=== PATIENT | male | born 1985 | race Caucasian/White ===

== ENCOUNTER 2020-02-09 13:19 | Emergency (ER) | payer OTHER, MEDICAID, SELFPAY ==
[2020-02-09 13:47] VITALS: BP 116/64; PULSE 70; RESP 18; TEMP 36.9; O2SAT 98; BMI 24.5
[2020-02-09 15:10] LABS: Adenovirus Not Detected (Not Detect); Bordetella pertussis Not Detected (Not Detect); Chlamydophila pneumoniae Not Detected (Not Detect); Coronavirus 229E Not Detected (Not Detect); Coronavirus HKU1 Not Detected (Not Detect); Coronavirus NL 63 Not Detected (Not Detect); Coronavirus OC43 Not Detected (Not Detect); Human Metapneumovirus Not Detected (Not Detect); Human Rhinovirus/Enterovirus Detected (Not Detect); Influenza A Not Detected (Not Detect); Influenza B Not Detected (Not Detect); Mycoplasma pneumoniae Not Detected (Not Detect); Parainfluenza Virus 1 Not Detected (Not Detect); Parainfluenza Virus 2 Not Detected (Not Detect); Parainfluenza Virus 3 Not Detected (Not Detect); Parainfluenza Virus 4 Not Detected (Not Detect); Respiratory Syncytial Virus Not Detected (Not Detect)
[2020-02-09 15:13] LABS: COVID19 -Nasal RAPID Negative (Negative)
--- NOTE | 2020-02-09 16:27 | ED_ITS ---
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 He says that 2 days ago he woke up with an irritated throat, cough has been sneezing, has experienced a reduction in his sense of taste and smell. He also endorses some body aches and low back pain, as well as several loose stools. He says he has had 4 watery stools over the past 2 days. He has been eating and drinking normally although he has a reduced appetite. He reports an occasional feeling of hard to get a deep breath when he goes uphill in the last couple of days this happened a few times. He has no known sick contacts other than his sister who also works construction and got sick around the same time as him, although notes that his child is in daycare, but has not been sick. He denies any fever, chills, abdominal pain, chest pain, or any other symptoms. MD Complaint: cough, sore throat and other (loose stol, loss of taste) Onset (ago): day(s) (2) Duration: constant Severity: mild Relieving factors: nothing Exacerbating factors: nothing Description of mucous: clear Able to tolerate fluids by mouth: Yes Context: sick contacts (sister) Associated symptoms: rhinorrhea, sore throat (irritated) and cough Treatments prior to arrival: none Related Data Allergies Allergy/AdvReac Type Severity Reaction Status Date / Time INGREDIENT: NKDA - NO KNOWN Allergy Unknown Uncoded 02/09/20 13:51 DRUG ALLERGIES Review of Systems <Cindy Osorio PA-C - Last Filed: 02/09/20 22:04> Review of Systems Narrative: GENERAL: Denies chills, fatigue, malaise, fever, sweats. HEENT: Denies sinus pain, ear pain, positive for irritated sore throat, positive for rhinorrhea, negative for difficulty swallowing, dizziness. RESPIRATORY: Denies dyspnea, positive for cough, negative for wheezing, hemoptysis, sputum. CARDIOVASCULAR: Denies chest pain, palpitations, orthopnea, edema, GASTROINTESTINAL: Denies nausea, vomiting, abdominal pain, diarrhea, constipation, melena. : Denies dysuria, frequency, incontinence, hematuria, urinary retention. MUSCULOSKELETAL: denies weakness, joint pain, or bony pain SKIN: Denies rash, skin lesions, or other NEUROLOGIC: Positive for reduced sense of taste, Denies weakness, headache, numbness, change in speech, confusion, seizures, incoordination. PSYCHIATRIC: No concerning psychosocial issues. 12 point review of systems is negative except for those stated above Patient History <Cindy Osorio PA-C - Last Filed: 02/09/20 22:04> Social History Smoking Status: Current every day smoker Smoking Status: Current every day smoker alcohol intake frequency: 0-2 drinks per day Substance Use Type: does not use Exam <Cindy Osorio PA-C - Last Filed: 02/09/20 22:04> Narrative Exam Narrative: GENERAL: 34 year old patient appears stated age. Well-nourished, well-developed patient, in mild distress. HEAD: Atraumatic. Normocephalic. EYES: Pupils equal round and reactive. Extraocular motions intact. No scleral icterus. No injection or drainage. ENT: Nose without bleeding, purulent drainage. Throat with mild erythema of the posterior oropharynx,/tonsillar pillar, no tonsillar hypertrophy or exudate. Airway patent. NECK: Trachea midline. Non tender CARDIOVASCULAR: Regular rate and rhythm without murmurs, gallops, or rubs. RESPIRATORY: Clear to auscultation. Breath sounds equal bilaterally. No wheezes, rales, or rhonchi. GASTROINTESTINAL: Abdomen soft, non-tender, nondistended. EXTREMITIES: No edema or joint tenderness. BACK: Nontender without deformity or crepitance. No flank tenderness. NEURO: AOx3. SKIN: No rash or erythema of visible areas Initial Vital Signs Initial Vital Signs: Vital Signs Temperature 98.4 F 02/09/20 13:47 Pulse Rate 70 02/09/20 13:47 Respiratory Rate 18 02/09/20 13:47 Blood Pressure 116/64 02/09/20 13:47 Pulse Oximetry 98 02/09/20 13:47 <Beata Chatman MD - Last Filed: 02/10/20 06:55> Initial Vital Signs Initial Vital Signs: Vital Signs Temperature 98.4 F 02/09/20 13:47 Pulse Rate 70 02/09/20 13:47 Respiratory Rate 18 02/09/20 13:47 Blood Pressure 116/64 02/09/20 13:47 Pulse Oximetry 98 02/09/20 13:47 Course <Cindy Osorio PA-C - Last Filed: 02/09/20 22:04> Course Course Narrative: Call the lab to ask if we need to do a 2nd swab to ensure that he gets tested for coronavirus novel 2019 vs use the previous swab, they stated that 2019 coronavirus was included in the virus panel and he tested negative for this they were just loading and into the chart at the time of our conversation 1651. Orders Ordered: ED Orders 02/09/20 13:05 Respiratory Panel (Film Array) Stat Vital Signs Vital signs: Vital Signs - 8 hr 02/09/20 17:07 Pulse Rate 71 Respiratory Rate 18 Blood Pressure 124/67 Pulse Oximetry 99 <Beata Chatman MD - Last Filed: 02/10/20 06:55> Orders Ordered: ED Orders 02/09/20 13:05 Respiratory Panel (Film Array) Stat Vital Signs Vital signs: Vital Signs - 8 hr 02/09/20 17:07 Pulse Rate 71 Respiratory Rate 18 Blood Pressure 124/67 Pulse Oximetry 99 MDM - URI/Sore Throat <Cindy Osorio PA-C - Last Filed: 02/09/20 22:04> Differential Diagnosis Differential diagnosis: Likely upper respiratory infection, sinusitis, viral infection, influenza, pharyngitis and other (COVID, Common cold) Medical Records Attestation: I reviewed the patient's medical records. Lab Data Attestation: I reviewed the patient's lab results. Lab results narrative: +Rhino COVID negative Labs: Lab Results 02/09/20 02/09/20 02/09/20 Range/Units 13:05 13:52 13:52 Chlamy pneumoniae PCR Not detected Cancelled (Not Detect) Adenovirus (PCR) Not detected Cancelled (Not Detect) B.parapertussis DNA PCR Not detected Cancelled Cancelled (Not Detect) Coronavirus OC43 (PCR) Not detected Cancelled (Not Detect) Coronavirus HKU1 (PCR) Not detected Cancelled (Not Detect) Coronavirus 229E (PCR) Not detected Cancelled (Not Detect) COVID-19 PCR Negative (Negative) Coronavirus NL63 (PCR) Not detected Cancelled (Not Detect) Human Metapneumovir PCR Not detected Cancelled (Not Detect) Influenza Type A (PCR) Not detected Cancelled (Not Detect) Influenza Type B (PCR) Not detected Cancelled (Not Detect) M. pneumoniae (PCR) Not detected Cancelled (Not Detect) Parainfluenza 1 (PCR) Not detected Cancelled (Not Detect) Parainfluenza 2 (PCR) Not detected Cancelled (Not Detect) Parainfluenza 3 (PCR) Not detected Cancelled (Not Detect) Parainfluenza 4 (PCR) Not detected Cancelled (Not Detect) RSV (PCR) Not detected Cancelled (Not Detect) Entero/Rhino (PCR) Detected H Cancelled (Not Detect) SARS-CoV-2 (PCR) Cancelled MDM Narrative Medical decision making narrative: Well-appearing previously healthy 34-year-old presents with symptoms of an upper respiratory infection. Concern for possible COVID. Respiratory virus panel is negative for COVID, he does have a positive rhino virus. Based on exam I do not feel any further labs or imaging are warranted today. Patient is discharged with instructions to follow-up with PCP. All questions answered, emergency return precautions provided. <Beata Chatman MD - Last Filed: 02/10/20 06:55> Lab Data Labs: Lab Results 02/09/20 02/09/20 02/09/20 Range/Units 13:05 13:52 13:52 Chlamy pneumoniae PCR Not detected Cancelled (Not Detect) Adenovirus (PCR) Not detected Cancelled (Not Detect) B.parapertussis DNA PCR Not detected Cancelled Cancelled (Not Detect) Coronavirus OC43 (PCR) Not detected Cancelled (Not Detect) Coronavirus HKU1 (PCR) Not detected Cancelled (Not Detect) Coronavirus 229E (PCR) Not detected Cancelled (Not Detect) COVID-19 PCR Negative (Negative) Coronavirus NL63 (PCR) Not detected Cancelled (Not Detect) Human Metapneumovir PCR Not detected Cancelled (Not Detect) Influenza Type A (PCR) Not detected Cancelled (Not Detect) Influenza Type B (PCR) Not detected Cancelled (Not Detect) M. pneumoniae (PCR) Not detected Cancelled (Not Detect) Parainfluenza 1 (PCR) Not detected Cancelled (Not Detect) Parainfluenza 2 (PCR) Not detected Cancelled (Not Detect) Parainfluenza 3 (PCR) Not detected Cancelled (Not Detect) Parainfluenza 4 (PCR) Not detected Cancelled (Not Detect) RSV (PCR) Not detected Cancelled (Not Detect) Entero/Rhino (PCR) Detected H Cancelled (Not Detect) SARS-CoV-2 (PCR) Cancelled Discharge Plan Departure Patient Disposition: Home Clinical Impression: Rhinovirus infection, Cough Upper respiratory infection Qualifiers: URI type: unspecified viral URI Qualified Code(s): J06.9 - Acute upper respiratory infection, unspecified Discharge Date/Time: 02/09/20 17:08 Instructions: DI for Common Cold Activity Restrictions/Additional Instructions: Thank you for allowing us to be part of your care in the emergency department today. Your respiratory virus panel did include COVID-19 test today, and this came back negative, however you do have a positive rhino virus test which is 1 type of common cold. I recommend you treat it as such, drink plenty of fluids and rest, do stay away from others to avoid them getting sick, if you have any new or concerning symptoms do not hesitate to seek medical care. You should be okay to spend time with immediate family however do note that you are sick and you could still past your cold on to other family members. I have included information for [facility] if you do not have a primary care provider you can call them to work on setting when up. There is no evidence of an emergent or life threatening illness at this time, but follow up with your doctor in 1-2 days is recommended nonetheless to continue to rule out serious underlying causes of your symptoms. Please call the office for an appointment. Please return to the Emergency Department for any worsening or persistent symptoms. Please take medications as directed. Referrals: [facility] [Outside] <Beata Chatman MD - Last Filed: 02/10/20 06:55> Cosign [facility] Attestation: I was immediately available in the department for consultation throughout this patient's visit. I agree with documentation as above. Beata Chatman MD
--- NOTE | 2020-02-09 16:36 | PC.NURSE ---
md at bedside for re eval and update on poc
[2020-02-09 17:07] VITALS: BP 124/67; PULSE 71; RESP 18; O2SAT 99
== END 2020-02-09 17:08 | disposition home or self-care (01) ==
PROVIDERS: Emergency Medicine; Emergency Provider Student in an Organized Health Care Education/Training Program; Family Provider Family Medicine
DX: J02.9 Acute pharyngitis, unspecified (principal); B34.8 Other viral infections of unspecified site; R05 Cough
CPT/HCPCS: 87633; 87635; 99281; 99282

== ENCOUNTER 2021-05-25 13:57 | Emergency (ER) | payer OTHER, MEDICAID, SELFPAY ==
[2021-05-25 14:02] VITALS: BP 132/73; PULSE 83; RESP 16; TEMP 36.7; O2SAT 98
--- NOTE | 2021-05-25 14:07 | DI.RAD.S_ITS ---
PROCEDURE: XR SHOULDER RT MIN 2V INDICATIONS: pain, lifting injury TECHNIQUE: 3 views of the shoulder were acquired. COMPARISON: None. FINDINGS: Bones: No fractures or dislocations. No suspicious bony lesions. Visualized ribs appear intact. Soft tissues: No suspicious soft tissue calcifications. IMPRESSION: No acute osseous abnormality. Dictated by: Charles Krishnamurthy M.D. on 05/25/2021 at 14:35 Approved by: Charles Krishnamurthy M.D. on 05/25/2021 at 14:35
--- NOTE | 2021-05-25 14:45 | ED.UPPEXIN ---
HPI - Extremity Injury (Upper) <KIN Bonilla - Last Filed: 05/25/21 15:58> General Chief Complaint: Extremity Injury, Upper Stated Complaint: Right Shoulder Injury Time Seen by Provider: 05/25/21 14:45 Source: patient Mode of arrival: Ambulatory History of Present Illness HPI narrative: 35-year-old male presents to emergency department with right shoulder pain which started yesterday when his in something above his head behind him. He denies any pop, or feeling of instability or dislocation, he reports that his right shoulder has been painful ever since. He is right-handed, he denies any weakness, numbness or tingling, or sensation changes. He reports that his pain is worse with abduction, and any extension movement. Related Data Previous Rx's Medication Instructions Recorded mirtazapine 15 mg tablet 7.5 mg PO BEDTIME #45 tab 11/21/20 paroxetine HCl 20 mg tablet (Paxil) 20 mg PO DAILY #90 tab 05/22/21 meloxicam 7.5 mg tablet 7.5 mg PO DAILY PRN #14 tab 05/25/21 Allergies Allergy/AdvReac Type Severity Reaction Status Date / Time No Known Drug Allergies Allergy Verified 05/25/21 14:29 Review of Systems <KIN Bonilla - Last Filed: 05/25/21 15:58> Review of Systems Narrative: General: denies fever, chills Head/Neck: denies headache, neck pain Eyes: denies visual changes, eye pain Cardio: denies chest pain, palpitations Respiratory: denies shortness of breath, cough GI: denies abdominal pain, nausea, vomiting, or diarrhea : denies dysuria, hematuria MSK: Endorses right shoulder pain, denies muscle weakness Skin: denies rash, itching Neuro: denies numbness, tingling Patient History <KIN Bonilla - Last Filed: 05/25/21 15:58> Social History Smoking Status: Current every day smoker Smoking Status: Current every day smoker alcohol intake frequency: 0-2 drinks per day Substance Use Type: does not use Exam <KIN Bonilla - Last Filed: 05/25/21 15:58> Narrative Exam Narrative: Independently reviewed vitals signs and nursing notes. General: Awake, alert, nontoxic, no cardiorespiratory distress Head/Neck: Atraumatic, neck full range of motion Eyes: EOMI, conjunctiva normal Nose: nares patent, no rhinorrhea Mouth/Throat: moist mucus membranes, posterior pharynx normal, no oral lesions Cardio: Regular rate and rhythm, no peripheral edema Respiratory: respirations unlabored without wheezing, stridor, or rales. No retractions. GI: Abdomen soft, nontender MSK: Moves all extremities, neurovascularly intact, patient's pain is worst when he put his right arm behind his back and with all extension movement, empty can test is negative, patient has pain with abduction, no pain with adduction or flexion. No step-off, no crepitus, patient's range of motion is limited with extension due to pain. No skin changes Skin: Normal capillary refill, no rash Neuro: Normal speech and cognition, normal gait Initial Vital Signs Initial Vital Signs: Vital Signs Temperature 98.0 F 05/25/21 14:02 Pulse Rate 83 05/25/21 14:02 Respiratory Rate 16 05/25/21 14:02 Blood Pressure 132/73 05/25/21 14:02 Pulse Oximetry 98 05/25/21 14:02 <Dakota Ríos DO - Last Filed: 05/25/21 16:23> Initial Vital Signs Initial Vital Signs: Vital Signs Temperature 98.0 F 05/25/21 14:02 Pulse Rate 83 05/25/21 14:02 Respiratory Rate 16 05/25/21 14:02 Blood Pressure 132/73 05/25/21 14:02 Pulse Oximetry 98 05/25/21 14:02 Course <KIN Bonilla - Last Filed: 05/25/21 15:58> Orders Ordered: ED Orders 05/25/21 14:07 XR shoulder RT min 2V Stat Discontinued Medications Tramadol HCl (Tramadol 50 Mg Tablet) 50 mg PO NOW ONE Stop: 05/25/21 15:37 Last Admin: 05/25/21 15:48 Dose: 50 mg Documented by: KARIS Vital Signs Vital signs: Vital Signs - 8 hr 05/25/21 14:02 Temperature 98.0 F Pulse Rate 83 Respiratory Rate 16 Blood Pressure 132/73 Pulse Oximetry 98 <DO Nereida Tompkins Last Filed: 05/25/21 16:23> Orders Ordered: ED Orders 05/25/21 14:07 XR shoulder RT min 2V Stat Discontinued Medications Tramadol HCl (Tramadol 50 Mg Tablet) 50 mg PO NOW ONE Stop: 05/25/21 15:37 Last Admin: 05/25/21 15:48 Dose: 50 mg Documented by: KARIS Vital Signs Vital signs: Vital Signs - 8 hr 05/25/21 14:02 Temperature 98.0 F Pulse Rate 83 Respiratory Rate 16 Blood Pressure 132/73 Pulse Oximetry 98 MDM - Extremity Injury (Upper) <Kay Coyle, [facility] - Last Filed: 05/25/21 15:58> Imaging Data Extremity x-ray #1: Radiologist's Impression: : 1985 Procedure: XR shoulder RT min 2V Ordering Provider: Dakota Ríos D.O. PROCEDURE:? XR SHOULDER RT MIN 2V ? INDICATIONS:? pain, lifting injury ? TECHNIQUE:? 3 views of the shoulder were acquired.? ? COMPARISON:? None. ? FINDINGS:? ? Bones:? No fractures or dislocations.? No suspicious bony lesions.? Visualized ribs appear intact.? ? Soft tissues:? No suspicious soft tissue calcifications.? ? IMPRESSION:? No acute osseous abnormality. ? ? Dictated by: Charles Krishnamurthy M.D. on 05/25/2021 at 14:35 ? ? Approved by: Charles Krishnamurthy M.D. on 05/25/2021 at 14:35 ? [facility] Narrative Medical decision making narrative: 35-year-old male presents to the emergency department with 1 day of right shoulder pain which occurred when he was lifting something over his head into the back of his truck with extension movement. He denies any pop, patient reports that his pain is worse with extension, and abduction. Pain is reproducible x-rays negative for acute osseous abnormality, without fracture dislocation, visualize ribs are intact, no joint effusion. Patient was fitted in a sling, instructed to wear this for the next week, and limit use of his right arm to allow rest, but to take off the sling every day and allow for normal range of motion. 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 Differential includes rotator cuff tendinitis, AC separation, ligamental injury, labrum tear, and subacromial bursitis. Patient is appropriate and amenable to discharge home. Vital signs are stable on repeat examination is unremarkable. Patient has been informed of results. Patient has been given strict return to ER precautions for any new or worsening symptoms. Patient understands to follow up closely with outpatient providers as instructed. Patient understands plan and agrees to discharge home. All questions and concerns answered at this time. Discharge Plan Departure Patient Disposition: Home Clinical Impression: Injury of shoulder, right Qualifiers: Encounter type: initial encounter Qualified Code(s): S49.91XA - Unspecified injury of right shoulder and upper arm, initial encounter Instructions: DI for Shoulder Sprain Activity Restrictions/Additional Instructions: *You have been diagnosed with a right shoulder sprain, it is difficult to say exactly what it is. It could be rotator cuff tendinitis, AC separation, ligamental injury, labrum tear, subacromial bursitis, or other... It is best to see how does over the next week and follow-up with your PCP to see how it is evolving. Please see your primary care provider in about a week, she can refer you to physical therapy in order advanced imaging as necessary if this is ongoing. *What to do: *Please continue to take your regular medications as directed. [x ] New medication prescriptions sent to your pharmacy: [[facility] ] [ ] New medication written as a paper prescription [ ] No new medications given *Please follow up with your primary care provider in 2-3 days, call for an appointment. Let them know you were seen in the Emergency Department and that we ask that you be seen in follow up. We will electronically transmit a record of today's note if your PCP is in our system *If you do not have a primary care provider please contact the [facility] Resource line at [phone]. They will ask some questions about your medical history and help get you set up with a doctor in the community. *Return to Emergency Department if you should have any new, worsening or concerning symptoms, such as [fever greater than 101F, chills, worsening pain, persistent vomiting or other bothersome symptoms] Prescriptions: New meloxicam 7.5 mg tablet 7.5 mg PO DAILY PRN (Reason: shoulder pain) Qty: 14 0RF Rx Instructions: Please take this medication at a different time then your Paxil, also please take this medication with food and water to protect her stomach. No Action mirtazapine 15 mg tablet 7.5 mg PO BEDTIME Qty: 45 3RF paroxetine HCl [Paxil] 20 mg tablet 20 mg PO DAILY Qty: 90 3RF Referrals: Lorin Crews PA-C [Primary Care Provider] - <Dakota Ríos DO - Last Filed: 05/25/21 16:23> [facility] Dr Ríos Co-Sign Statement: I was available for consultation during this patient's emergency department visit. This chart is signed by myself for administrative purposes only. I did not have direct contact with this patient during this visit. They were seen independently by the APC.
[2021-05-25] MEDS: TRAMADOL 50 MG TABLET PO (15:48)
== END 2021-05-25 16:12 | disposition home or self-care (01) ==
PROVIDERS: Emergency Provider Nurse Practitioner Critical Care Medicine; Family Provider Family Medicine; PCP Physician Assistant
DX: S49.91XA Unspecified injury of right shoulder and upper arm, initial encounter (principal); F17.200 Nicotine dependence, unspecified, uncomplicated; X50.9XXA Other and unspecified overexertion or strenuous movements or postures, initial encounter; Y93.89 Activity, other specified
CPT/HCPCS: 73030; 99283; 99284

== ENCOUNTER → 2022-10-19 09:24 | Outpatient (CLI) | payer OTHER, MEDICAID, SELFPAY ==
[2022-10-19 19:46] LABS: Add Manual Diff / Slide Review NO; Basophils Absolute Auto 0 /uL (0-100); Basophils Percent Auto 0.6 % (0-2); Eosinophils Absolute Auto 200 /uL (0-450); Eosinophils Percent Auto 2.6 % (2-4); Hematocrit 44.2 % (41-53); Hemoglobin 14.7 g/dL (13.5-17.5); Lymphocytes Absolute Auto 1800 /uL (1100-4500); Lymphocytes Percent Auto 27.5 % (25-40); Mean Corpuscular HGB Conc 33.3 % (30-36); Mean Corpuscular Hemoglobin 31.2 PG (26-34); Mean Corpuscular Volume 93.8 fL (80-100); Monocytes Absolute Auto 600 /uL (0-900); Monocytes Percent Auto 10.1 % (3-14); Neutrophils Absolute Auto 3800 /uL (1500-7000); Neutrophils Percent Auto 59.2 % (50-75); Platelet Count 181 X10^3/uL (150-400); Red Blood Cell Count 4.71 X10^6/uL (4.5-5.9); White Blood Cell Count 6.4 X10^3/uL (4.5-11.0)
[2022-10-19 20:15] LABS: Alanine Aminotransferase 40 IU/L (<50); Albumin 4.1 g/dL (3.5-5.0); Albumin Globulin Ratio 1.6 (1.0-2.8); Alkaline Phosphatase 59 U/L (38-126); Aspartate Aminotransferase 38 IU/L (17-59); BUN Creatinine Ratio 14.9 (6-22); Bilirubin Total 0.3 mg/dL (0.2-1.3); Blood Urea Nitrogen 13 mg/dL (9-20); Carbon Dioxide 27 mmol/L (22-32); Chloride 101 mmol/L (98-107); Cholesterol 149 mg/dL (140-199); Estimated Glomerular Filt Rate > 60 mL/min (>60); Globulin 2.6 g/dL (1.7-4.1); Glucose 155 mg/dL (70-100); HDL Cholesterol 64 mg/dL (40-60); HEMOLYSIS < 15 (0-50); LDL Cholesterol Calculated 75 mg/dL (<100); Potassium 4.4 mmol/L (3.4-5.1); Sodium 136 mmol/L (137-145); Total Protein 6.7 g/dL (6.3-8.2); Triglycerides 50 mg/dL (35-150)
[2022-10-19 20:30] LABS: TSH w/ Reflex to FT4 2.98 uIU/mL (0.47-4.68)
== END ==
PROVIDERS: Family Provider Family Medicine; PCP Physician Assistant Medical; Visit Provider Physician Assistant Medical
DX: F41.1 Generalized anxiety disorder (principal); Z12.11 Encounter for screening for malignant neoplasm of colon; Z12.83 Encounter for screening for malignant neoplasm of skin
CPT/HCPCS: 80053; 80061; 84443; 85025

== ENCOUNTER → 2022-10-20 08:20 | Outpatient (CLI) | payer OTHER, MEDICAID, SELFPAY ==
[2022-10-20 22:38] LABS: Labcorp Hemoglobin (Hb) A1c 5.8 % (4.8-5.6)
== END ==
PROVIDERS: Family Provider Family Medicine; PCP Physician Assistant Medical; Visit Provider Physician Assistant Medical
DX: R73.9 Hyperglycemia, unspecified (principal)
CPT/HCPCS: 83036

== ENCOUNTER → 2023-01-05 09:02 | Outpatient (CLI) | payer OTHER, MEDICAID, SELFPAY ==
[2023-01-05 21:19] LABS: Alanine Aminotransferase 38 IU/L (<50); Albumin 4.2 g/dL (3.5-5.0); Albumin Globulin Ratio 1.6 (1.0-2.8); Alkaline Phosphatase 56 U/L (38-126); Aspartate Aminotransferase 47 IU/L (17-59); BUN Creatinine Ratio 17.2 (6-22); Bilirubin Total 0.6 mg/dL (0.2-1.3); Blood Urea Nitrogen 15 mg/dL (9-20); Carbon Dioxide 26 mmol/L (22-32); Chloride 101 mmol/L (98-107); Cholesterol 132 mg/dL (140-199); Estimated Glomerular Filt Rate > 60 mL/min (>60); Globulin 2.7 g/dL (1.7-4.1); Glucose 104 mg/dL (70-100); HDL Cholesterol 64 mg/dL (40-60); HEMOLYSIS < 15 (0-50); LDL Cholesterol Calculated 56 mg/dL (<100); Potassium 4.4 mmol/L (3.4-5.1); Sodium 135 mmol/L (137-145); Total Protein 6.9 g/dL (6.3-8.2); Triglycerides 58 mg/dL (35-150)
[2023-01-05 21:29] LABS: Add Manual Diff / Slide Review NO; Basophils Absolute Auto 0 /uL (0-100); Basophils Percent Auto 0.9 % (0-2); Eosinophils Absolute Auto 100 /uL (0-450); Eosinophils Percent Auto 2.3 % (2-4); Hematocrit 41.6 % (41-53); Hemoglobin 14.2 g/dL (13.5-17.5); Lymphocytes Absolute Auto 1500 /uL (1100-4500); Lymphocytes Percent Auto 26.6 % (25-40); Mean Corpuscular HGB Conc 34.1 % (30-36); Mean Corpuscular Hemoglobin 31.8 PG (26-34); Mean Corpuscular Volume 93.1 fL (80-100); Monocytes Absolute Auto 700 /uL (0-900); Monocytes Percent Auto 12.1 % (3-14); Neutrophils Absolute Auto 3400 /uL (1500-7000); Neutrophils Percent Auto 58.1 % (50-75); Platelet Count 196 X10^3/uL (150-400); Red Blood Cell Count 4.47 X10^6/uL (4.5-5.9); Red Cell Distribution Width 12.6 % (11.6-14.8); White Blood Cell Count 5.8 X10^3/uL (4.5-11.0)
[2023-01-05 21:44] LABS: TSH w/ Reflex to FT4 1.67 uIU/mL (0.47-4.68)
[2023-01-06 21:42] LABS: x Labcorp Estim. Avg Glu (eAG) 111 mg/dL (.); x Labcorp Hemoglobin A1c 5.5 % (4.8-5.6)
[2023-01-11 10:34] LABS: Percent Free Testosterone 1.82 % (1.50-4.20); Testosterone Free 18.05 ng/dL (5.00-21.00); Testosterone Total 991.9 ng/dL (264.0-916.0)
== END ==
PROVIDERS: Family Provider Family Medicine; PCP Physician Assistant Medical; Visit Provider Physician Assistant Medical
DX: E11.9 Type 2 diabetes mellitus without complications (principal); R53.83 Other fatigue; R73.9 Hyperglycemia, unspecified
CPT/HCPCS: 80053; 80061; 83036; 84402; 84403; 84443; 85025

== ENCOUNTER → 2023-08-23 10:22 | Outpatient (CLI) | payer OTHER, MEDICAID, SELFPAY ==
[2023-08-23 19:33] LABS: Alanine Aminotransferase 27 IU/L (<50); Albumin 4.2 g/dL (3.5-5.0); Albumin Globulin Ratio 1.7 (1.0-2.8); Alkaline Phosphatase 53 U/L (38-126); Aspartate Aminotransferase 31 IU/L (17-59); BUN Creatinine Ratio 15.9 (6-22); Bilirubin Total 0.5 mg/dL (0.2-1.3); Blood Urea Nitrogen 14 mg/dL (9-20); Calcium 9.6 mg/dL (8.4-10.2); Carbon Dioxide 29 mmol/L (22-32); Chloride 106 mmol/L (98-107); Cholesterol 123 mg/dL (140-199); Estimated Glomerular Filt Rate > 60 mL/min (>60); Globulin 2.5 g/dL (1.7-4.1); Glucose 88 mg/dL (70-100); HDL Cholesterol 58 mg/dL (40-60); HEMOLYSIS < 15 (0-50); LDL Cholesterol Calculated 53 mg/dL (<100); Potassium 4.3 mmol/L (3.4-5.1); Sodium 137 mmol/L (137-145); Total Protein 6.7 g/dL (6.3-8.2); Triglycerides 59 mg/dL (35-150)
[2023-08-23 19:47] LABS: Hemoglobin A1C% w Est Avg Glu 5.3 % (4.0-6.0)
[2023-08-23 20:53] LABS: Microalbumin Urine Random < 0.6 mg/dL (0-1.6)
== END ==
PROVIDERS: Family Provider Family Medicine; PCP Physician Assistant Medical; Visit Provider Physician Assistant Medical
DX: E11.9 Type 2 diabetes mellitus without complications (principal)
CPT/HCPCS: 80053; 80061; 82043; 82570; 83036

== ENCOUNTER → 2023-12-13 11:11 | Outpatient (CLI) | payer OTHER, MEDICAID, SELFPAY ==
[2023-12-13 20:36] LABS: Hemoglobin A1C% w Est Avg Glu 5.5 % (4.0-6.0)
[2023-12-13 20:40] LABS: Alanine Aminotransferase 32 IU/L (<50); Albumin 4.6 g/dL (3.5-5.0); Albumin Globulin Ratio 1.9 (1.0-2.8); Alkaline Phosphatase 53 U/L (38-126); Aspartate Aminotransferase 39 IU/L (17-59); BUN Creatinine Ratio 15.3 (6-22); Bilirubin Total 0.6 mg/dL (0.2-1.3); Blood Urea Nitrogen 13 mg/dL (9-20); Calcium 9.6 mg/dL (8.4-10.2); Carbon Dioxide 29 mmol/L (22-32); Chloride 105 mmol/L (98-107); Estimated Glomerular Filt Rate > 60 mL/min (>60); Globulin 2.4 g/dL (1.7-4.1); Glucose 86 mg/dL (70-100); HEMOLYSIS < 15 (0-50); Potassium 4.4 mmol/L (3.4-5.1); Sodium 138 mmol/L (137-145)
== END ==
PROVIDERS: Family Provider Family Medicine; PCP Physician Assistant Medical; Visit Provider Physician Assistant Medical
DX: R73.9 Hyperglycemia, unspecified (principal); R79.89 Other specified abnormal findings of blood chemistry
CPT/HCPCS: 80053; 83036; 84402; 84403

== ENCOUNTER → 2025-06-12 09:23 | Outpatient (CLI) | payer OTHER, MEDICAID, SELFPAY ==
[2025-06-12 16:22] LABS: Add Manual Diff / Slide Review NO; Hematocrit 42.9 % (41-53); Hemoglobin 14.5 g/dL (13.5-17.5); Lymphocytes Absolute Auto 1700 /uL (1100-4500); Mean Corpuscular HGB Conc 33.9 % (30-36); Mean Corpuscular Hemoglobin 31.6 PG (26-34); Mean Corpuscular Volume 93.4 fL (80-100); Platelet Count 190 X10^3/uL (150-400)
[2025-06-12 16:29] LABS: Alanine Aminotransferase 44 IU/L (<50); Albumin 4.6 g/dL (3.5-5.0); Albumin Globulin Ratio 1.8 (1.0-2.8); Alkaline Phosphatase 59 U/L (38-126); Blood Urea Nitrogen 17 mg/dL (9-20); Calcium 9.6 mg/dL (8.4-10.2); Carbon Dioxide 27 mmol/L (22-32); Chloride 102 mmol/L (98-107); Cholesterol 156 mg/dL (140-199); Estimated Glomerular Filt Rate > 60 mL/min (>60); Globulin 2.5 g/dL (1.7-4.1); Glucose 104 mg/dL (70-99); HDL Cholesterol 72 mg/dL (40-60); HEMOLYSIS 18 (0-50); Potassium 4.6 mmol/L (3.4-5.1); Sodium 136 mmol/L (137-145); Total Protein 7.1 g/dL (6.3-8.2); Triglycerides 76 mg/dL (35-150)
[2025-06-12 16:51] LABS: Hemoglobin A1C% w Est Avg Glu 5.4 % (4.0-6.0)
== END ==
PROVIDERS: Family Medicine; Family Provider Family Medicine; PCP Physician Assistant Medical; Visit Provider Physician Assistant Medical
DX: E11.65 Type 2 diabetes mellitus with hyperglycemia (principal); Z12.11 Encounter for screening for malignant neoplasm of colon
CPT/HCPCS: 80053; 80061; 82043; 82274; 82570; 83036; 85025